=== PATIENT | female | born 1990 | race Caucasian/White ===

== ENCOUNTER 2019-11-07 19:11 | Emergency (ER) | payer MEDICAID, SELFPAY ==
[2019-11-07 19:23] VITALS: BP 113/83; PULSE 100; RESP 19; TEMP 36.9; O2SAT 99
[2019-11-07] MEDS: Penicillin V POTASSIUM 500 MG TAB 1000 MG PO (20:36)
--- NOTE | 2019-11-07 20:37 | W.ED.GENAD ---
Discharge Plan Disposition Patient Disposition: HOME Condition: Stable Discharge Details Chief Complaint: DentalOral Clinical Impression: Dental abscess Primary Care Provider: None,None ED Provider: Paula Montelongo Home Meds and New Rx's Prescriptions: New penicillin V potassium 500 mg tablet 500 mg PO QID Qty: 40 RF: 0 No Action naproxen sodium [Aleve] 220 mg Capsule 220 mg PO PRN PRNRF: 0 Discharge Instructions Instructions: Dental Abscess (ED) Additional Instructions: Ice to the cheek for swelling. Keep head of bed elevated. Warm or room temperature salt water rinses after eating or drinking. Use antibiotic as prescribed. Ibuprofen for discomfort if needed. Use with food. Follow-up with dentist as discussed. Return for any worsening, concerns or alarming symptoms sooner if needed as discussed Discharge Data Discharge Date/Time-TO BE ENTERED AT DEPARTURE: 11/07/19 20:40 Medical Decision Making Is a 28-year-old woman who complains of dental pain in the left lower molar for the last few days. Patient reports foul drainage present for the last few days. Patient reports pain is tolerable with ibuprofen, she is able to sleep at night without difficulty. She is concerned with the possibility of infection. Patient does have mild drainage present and gum tenderness noted at the left lower posterior molar. Patient has no sign of overlying cellulitis at the jaw externally. Patient has no associated trismus or voice change. We have discussed use of the antibiotics. Patient has had no difficulty using penicillin. Patient denies fevers but does report mild chills in the morning for the last few days. Given patient spontaneous drainage I do not feel incision and drainage is appropriate at this time nor do I find a focal area of fluctuance. Will recommend antibiotic treatment and close follow-up with dentist. Conservative treatments discussed. Patient agrees with plan of care. Discussed alarming symptoms for which patient should have return. The patient was stable and requested discharge. Prior to discharge, my usual and customary return precautions were reviewed with the patient - this included follow-up instructions and reasons to return to the Emergency Department if conditions worsens, does not improve as expected, or other new concerns arise. HPI General Date/Time Provider Initiated Documentation: 11/07/19 19:23. HPI Narrative: Is a 28-year-old patient who presents with left jaw pain. Patient reports left-sided dental pain. Patient reports an infected tooth in front of her wisdom tooth has been draining foul tasting fluid. Patient is concerned the possibility of dental abscess. Patient reports mild pain when laying on the jaw but otherwise pain has been improved with ibuprofen. Patient denies any voice change or trismus. Patient denies fever. Does report mild chills in the morning. Has been eating and drinking without difficulty. Is concerned that she may require antibiotic treatment at this time. Patient denies any other upper respiratory symptoms. No other concerns or complaints at this time. Denies dental injury or trauma Related Data Home Medications Medication Instructions Recorded Confirmed naproxen sodium [Aleve] 220 mg PO PRN PRN 11/07/19 11/07/19 penicillin V potassium 500 mg PO QID #40 tab 11/07/19 Previous Rx's Medication Instructions Recorded penicillin V potassium 500 mg PO QID #40 tab 11/07/19 Allergies Allergy/AdvReac Type Severity Reaction Status Date / Time No Known Allergies Allergy Unverified 11/07/19 19:35 General Stated Complaint: DentalOral BEATA: 4 Review of Systems All systems reviewed & are unremarkable except as noted in HPI and below Constitutional Constitutional: Reports chills, Denies fatigue, Denies fever(s), Denies headache(s) and Denies malaise ENT Ears, Nose, Mouth, and Throat: Denies headache(s) Respiratory Respiratory: Denies cough, Denies pain on inspiration, Denies pain with cough and Denies wheezing Neurologic Neurologic: Denies headache(s) Endocrine Endocrine: Denies fatigue Allergic/Immunologic Allergic/Immunologic: Denies wheezing [facility] Social History Smoking/Tobacco Use Status: Current every day Tobacco Type: cigarettes Alcohol Intake: current Alcohol Intake frequency: holidays/special occasions only Drug use: Never Substance use type: does not use Do you feel safe at home: Yes Do you feel safe in your relationship?: Yes Exam Narrative Exam Narrative: CONST: Healthy appearing patient, in no acute distress. Well hydrated. Alert and alert. HENMT: Head nomocephalic, normal to inspection. Atraumatic. Hearing grossly normal. TMs appear normal bilaterally, external ears normal bilaterally. Left-sided facial swelling noted along the jaw. Mild palpable tenderness at the site with no overlying cellulitis. Left lower posterior molar with erythema and mild tenderness along the gumline. A site of drainage is present. There is a noted partially exposed wisdom tooth posterior to the molar. EYES: General normal appearance. Alignment normal. Eyelids normal. Conjunctiva normal. NECK: Normal visual inspection. FROM. Trachea midline. No Midline tenderness. SKIN: Normal. Dry. No rashes. NEURO: Alert and awake. Speech clear. PSYCH: Normal affect. Cooperative. Course Vital Signs Vital signs: Vital Signs Temperature 36.9 C 11/07/19 19:23 Pulse 100 H 11/07/19 19:23 Respiratory Rate 11/07/19 19:23 Blood Pressure 113/83 11/07/19 19:23 Pulse Oximetry 99 11/07/19 19:23 Temperature 36.9 C 11/07/19 19:23 Temperature Source Tympanic 11/07/19 19:23 Pulse 100 H 11/07/19 19:23 Respiratory Rate 19 11/07/19 19:23 Respiratory Effort 11/07/19 19:25 Blood Pressure 113/83 11/07/19 19:23 Blood Pressure Position Sitting 11/07/19 19:23 Pulse Oximetry 99 11/07/19 19:23 Oxygen Delivery Method Room Air 11/07/19 19:23 Oxygen Flow Rate 0 11/07/19 19:23 Pain Level 9 11/07/19 19:26
== END 2019-11-07 20:40 | disposition home or self-care (01) ==
PROVIDERS: Emergency Provider Physician Assistant
DX: R68.84 Jaw pain (principal); K04.7 Periapical abscess without sinus
CPT/HCPCS: 99283

== ENCOUNTER 2024-10-01 17:45 | Emergency (ER) | payer SELFPAY ==
[2024-10-01 17:58] VITALS: BP 112/82; PULSE 104; RESP 22; TEMP 36.6; O2SAT 98
--- NOTE | 2024-10-01 18:28 | ED.GENADUL_ITS ---
Discharge Plan Disposition Patient Disposition: Home Condition: Stable Discharge Details Clinical Impression: Bronchitis Primary Care Provider: Unknown,Unknown ED Provider: Rico Marshall Home Meds and New Rx's Prescriptions: New amoxicillin-pot clavulanate 875-125 mg tablet 1 tab PO BID 5 Days Qty: 10 0RF azithromycin 250 mg tablet See Rx Instructions .ROUTE .COMPLEX Qty: 6 0RF Rx Instructions: For 250 mg dose pack: take 500 mg today (day 1), then 250 mg for 4 days (days 2-5) No Action naproxen sodium [Aleve] 220 mg Capsule 220 mg PO PRN PRN Discharge Instructions Instructions: Azithromycin (Systemic), Amoxicillin and Clavulanate, Bronchitis, Adult ED Additional Instructions: You were seen in the emergency department for your cough and shortness of breath for the past couple weeks. Your lungs on x-ray are beginning to show some signs of emphysema, you should quit smoking. I have sent you 2 different antibiotics that should cover acute exacerbation of chronic bronchitis, please take Tylenol and ibuprofen as needed. I have provided you with an albuterol inhaler to use for your shortness of breath, you can use this every 2-4 hours as needed. Please return to the emergency department for any respiratory distress or acute worsening despite treatment Discharge Data Discharge Date/Time-TO BE ENTERED AT DEPARTURE: 10/01/24 20:47 HPI General Date/Time Provider Initiated Documentation: 10/01/24 18:28 . HPI Narrative: 33 year-old female presents to ED today by POV/ambulating with her son, with a chief complaint of shortness of breath for two weeks, consistent cough, greenish/brown plegm, gunky eyes. Quality described as generalized respiratory illness, no radiation to respiratory distress, abdominal pain, severe chest pain, nausea/vomiting, endorses fatigue. Severity is described as moderate/10. Palliating factors include OTCs with some relief. Provoking factors include worse when laying down. 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 Patient not anticoagulated. Related Data Home Medications ?Medication ?Instructions ?Recorded ?Confirmed naproxen sodium 220 mg capsule 220 mg PO PRN PRN 11/07/19 10/01/24 (Aleve) amoxicillin 875 mg-potassium 1 tab PO BID 5 days #10 tabs 10/01/24 clavulanate 125 mg tablet azithromycin 250 mg tablet See Rx Instructions PO .COMPLEX #6 10/01/24 tabs Previous Rx's ?Medication ?Instructions ?Recorded amoxicillin 875 mg-potassium 1 tab PO BID 5 days #10 tabs 10/01/24 clavulanate 125 mg tablet azithromycin 250 mg tablet See Rx Instructions PO .COMPLEX #6 10/01/24 tabs Allergies Allergy/AdvReac Type Severity Reaction Status Date / Time No Known Allergies Allergy Unverified 10/01/24 18:01 General Stated Complaint: RespSymp BEATA: 3 Review of Systems All systems reviewed & are unremarkable except as noted in HPI and below Exam Narrative Exam Narrative: GENERAL APPEARANCE: Well-nourished, non-toxic, awake and alert, atraumatic, no acute distress. SKIN: Warm, pink, dry, intact, without rashes/lesions/ulcerations. HEAD: Normocephalic, atraumatic, normal hair distribution for gender/age. EYES: Normal conjunctiva, no exudates on lids/lashes. ENT: Nares patent, no circumoral cyanosis, no facial swelling NECK: Supple, trachea midline, painless cervical ROM. LUNGS/CHEST: Lungs CTA bilaterally- no rhonchi/rales, mild expiratory wheezes, non-labored respirations, normal A/P diameter, symmetrical expansion, no chest wall deformity HEART (CV/PV): Regular rate and rhythm without murmur, no peripheral edema, no JVD. ABDOMEN: Soft, non-distended, no guarding. MSK: Normal ROM, no swelling/deformity to bilateral UEs or LEs, moving all extremities without weakness, no cyanosis, spine midline without tenderness, normal curvature. NEURO: Mental Status AAOx4 - alert to person, place, time, events No facial droop, no forehead involvement. Motor: No focal weakness - strength 5/5 in bilateral UEs and LEs, proximal and distal, symmetric. Sensory: sensation intact to light touch globally. Gait normal: patient ambulated without ataxia into ED room. PSYCH: euthymic, cooperative, pleasant, appropriate speech Course Vital Signs Vital signs: Vital Signs Temperature 36.6 C 10/01/24 17:58 Pulse 104 H 10/01/24 17:58 Respiratory Rate 22 10/01/24 17:58 Blood Pressure 112/82 10/01/24 17:58 Pulse Oximetry 98 10/01/24 17:58 Temperature 36.6 C 10/01/24 17:58 Temperature Source Oral 10/01/24 17:58 Pulse 104 H 10/01/24 17:58 Respiratory Rate 22 10/01/24 17:58 Blood Pressure 112/82 10/01/24 17:58 Blood Pressure Position Sitting 10/01/24 17:58 Pulse Oximetry 98 10/01/24 17:58 Oxygen Delivery Method Room Air 10/01/24 17:58 Oxygen Flow Rate 0 10/01/24 17:58 Pain Level 2 10/01/24 17:58 Medical Decision Making This dictation utilizes [id number] dictation software and may contain unedited grammatical errors. 33 year-old female presents to ED today by POV/ambulating with her son, with a chief complaint of shortness of breath for two weeks, consistent cough, greenish/brown plegm, gunky eyes. Quality described as generalized respiratory illness, no radiation to respiratory distress, abdominal pain, severe chest pain, nausea/vomiting, endorses fatigue. Severity is described as moderate/10. Palliating factors include OTCs with some relief. Provoking factors include worse when laying down. 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 Patients' medical history: Noncontributory. Family and social history: Long-term tobacco use, denies illicit substance use, endorses sick contacts at daycare. Pertinent exam findings / vital signs include mild expiratory wheeze, no respiratory distress, nontoxic, benign cardiac exam. Differential / pathologies of concern include pneumonia, URI, early COPD. Diagnostic studies of: -Respiratory panel PCR, chest x-ray-PCR negative, chest x-ray shows hyperinflation. Interventions of: -Treating empirically for acute exacerbation of chronic bronchitis with Augmentin and azithromycin, provided inhaler to go for shortness of breath. ED Course/Assessment/Plan: Counseled the patient that there is some signs of hyperinflation which could be early COPD along with her expiratory wheeze, counseled on negative COVID flu, she has been sick for quite some time with productive sputum I am treating her for acute exacerbation of chronic bronchitis, given inhaler for shortness of breath, strict return criteria for any acute worsening respiratory distress, counseled on therapeutic dosing Tylenol and ibuprofen. Findings not consistent with pneumonia, respiratory distress, toxic illness. Disposition of bronchitis. Patient verbalized understanding of the plan and return to ED criteria and engaged in shared decision making. Medical Records Medical records reviewed: Yes I reviewed the patient's medical records. Imaging Data Radiologic Study: Attestation: I personally reviewed and interpreted this imaging study as follows: Imaging: X-Ray Radiologist's impression: EXAM: XR CHEST 2V PA LATERAL CLINICAL HISTORY: cough. TECHNIQUE: 2D digital imaging was performed. COMPARISON: CR CHEST 2 VIEWS PA,LAT from 08/23/2012 FINDINGS: 2 views: Heart size is normal. The mediastinum is not widened. Bilateral hyperinflation again noted. No new infiltrates nor pleural effusions. No pneumothorax. IMPRESSION: No acute pulmonary findings.Hyperinflation, as was also evident in 2011. Lab Data Lab results reviewed: Yes I reviewed the patient's lab results. Labs: Laboratory Tests Range/Units 10/01/24 18:20 COVID-19 Source Nasopharynx SARS-CoV-2 (PCR) (Negative) Negative Influenza Type A (PCR) (Negative) Negative Influenza Type B (PCR) (Negative) Negative RSV (PCR) (Negative) Negative Quality:SDOH Health Related Social Needs: No Data to Display PFSH All Active Problems (Updated 10/01/24 @ 20:02 by WALDEMAR Jones) Bronchitis (Acute) Social History Smoking/Tobacco Use Status: Current every day Tobacco Type: cigarettes Smoking risk assessment performed?: Yes Alcohol Intake: current Alcohol Intake frequency: holidays/special occasions only Drug use: Never Substance use type: does not use Do you feel safe at home: Yes Do you feel safe in your relationship?: Yes
[2024-10-01] MEDS: Albuterol HFA 8 GM 60 PUFF INH IH ×2 (18:48→19:22)
[2024-10-01 19:48] LABS: COVID-19 PCR Negative (Negative); Influenza A PCR Negative (Negative); Influenza B PCR Negative (Negative); RSV PCR Negative (Negative)
[2024-10-01 19:50] LABS: Source Nasopharynx
--- NOTE | 2024-10-01 20:17 | DI.VRAD_ITS ---
PROCEDURE INFORMATION: Exam: XR Chest Exam date and time: 10/01/2024 7:16 PM Age: 33 years old Clinical indication: Patient HX: Cough for weeks TECHNIQUE: Imaging protocol: Radiologic exam of the chest. Views: 2 views. COMPARISON: No relevant prior studies available. FINDINGS: Lungs: Unremarkable. No consolidation. Pleural spaces: Unremarkable. No pleural effusion. No pneumothorax. Heart/Mediastinum: Unremarkable. No cardiomegaly. Bones/joints: Unremarkable. IMPRESSION: No acute findings. Dictated and Authenticated by: Rosas Melendez MD. Ordering:JOSH Gómez MD
[2024-10-01] MEDS: Amoxicillin 875/Clav. 125 TAB PO (20:46)
== END 2024-10-01 20:47 | disposition home or self-care (01) ==
PROVIDERS: Emergency Provider Physician Assistant
DX: J40 Bronchitis, not specified as acute or chronic; F17.210 Nicotine dependence, cigarettes, uncomplicated
CPT/HCPCS: 81025; 87637; 94640; 99284; 71046